=== PATIENT | female | born 1955 | race Caucasian/White ===

== ENCOUNTER 2022-10-30 15:26 | Emergency (ER) | payer BC, OTHER ==
[~2022-10-30] VITALS: Ht 162.6 cm; Wt 55.8 kg
[2022-10-30 15:28] VITALS: BP_SYST 154
--- NOTE | 2022-10-30 15:39 | NUR ---
PT STATES SEEN AT [facility] SEEN BY DR. MARIBELL LUCIO. STATES DEVELOPED SUDDEN ONSET OF CHEST HEAVINESS, RADIATING TO BACK, "SHAKEY", ANXIOUS, BLURRED VISION (OUTER EDGE OF VISUAL FIELD), SOB, EPIGASTRIC DISCOMFORT AFTER TAKING PAXIL IN AM, THEN LORAZEPAM 1MG AT NOON. STATES IS HELPING DAUGHTER MOVE TO NEW HOME. STATES SHE HAD "SMALL BOUTS OF THIS" PRIOR. STATES SIMILAR EVENTS HAVE HAPPENED PRIOR, SELF DESCRIBES "PANIC ATTACKS". STATES ONE WEEK AGO WHILE AT [employer] SHE BECAME UNABLE TOLERATE THE "NOISE". I STAYED IN THAT STATE UNTIL THE GAME WAS OVER. COMFORT MEASURES AND SUPPORTIVE CARE INITIATED. PREP FOR BED PLACEMENT, EKG AND ERMD MSE.
--- NOTE | 2022-10-30 15:45 | NUR ---
Pt brought by , A&Ox4, pt presents to ER with anxiety and chest tightness radiating to the back, skin pink and warm, cap refill <3, VSS, respirations even and unlabored, will cont to monitor.
--- NOTE | 2022-10-30 15:50 | NUR ---
Dr Borges evaluating patient at bedside
--- NOTE | 2022-10-30 16:35 | NUR ---
Pt ambulated to restroom, well tolerated
[2022-10-30 16:54] LABS: BASOPHILS % (AUTO) 0.8 % (0.0-2.0); EOSINOPHILS # (AUTO) 0.1 K/uL (0.0-0.4); EOSINOPHILS % (AUTO) 1.2 % (0.0-4.0); HEMATOCRIT 37.3 % (36-48); HEMOGLOBIN 12.9 g/dL (12.0-16.0); LYMPHOCYTES % (AUTO) 32.6 % (20.5-51.5); MEAN CORPUSCULAR HEMOGLOBIN 32 pg (27-31); MEAN CORPUSCULAR HGB CONC 35 % (32-36); MEAN CORPUSCULAR VOLUME 92 fL (79.0-98.0); MONOCYTES # (AUTO) 0.5 K/uL (0.0-1.0); MONOCYTES % (AUTO) 7.9 % (1.7-9.3); NEUTROPHILS # (AUTO) 3.5 K/uL (1.8-7.7); NEUTROPHILS % (AUTO) 57.5 % (40.0-70.0); PLATELET COUNT (AUTO) 211 K/uL (130-430); RED BLOOD CELL COUNT(AUTO) 4.06 MIL/uL (4.2-6.2); RED CELL DISTRIBUTION WIDTH 12.8 % (9.0-15.0); WHITE BLOOD COUNT (AUTO) 6.1 K/uL (4.8-10.8)
[2022-10-30 17:11] LABS: ALANINE AMINOTRANSFERASE 28 U/L (12-78); ALBUMIN 3.7 g/dL (3.4-4.8); ANION GAP 6 (5-15); ASPARTATE AMINOTRANSFERASE 23 U/L (10-37); CALCIUM 8.9 mg/dL (8.4-11.0); CHLORIDE 102 mmol/L (98-107); CREATININE 0.76 mg/dL (0.55-1.30); GFR AFRICAN AMERICAN 98 mL/min (>90); GLUCOSE 94 mg/dL (70-99); TOTAL BILIRUBIN 0.6 mg/dL (0.0-1.0); UREA NITROGEN, BLOOD 23 mg/dL (8-21)
[2022-10-30 17:40] VITALS: BP_SYST 154
--- NOTE | 2022-10-30 17:40 | NUR ---
Patient given written and verbal discharge instructions and verbalizes understanding. ER MD discussed with patient the results and treatment provided. Patient in stable condition. ID arm band removed. No Rx given. Patient educated on pain management and to follow up with PMD. Pain Scale 2/10 . Opportunity for questions provided and answered. Medication side effect fact sheet provided.
== END 2022-10-30 17:40 | disposition home or self-care (01) ==
LOC: SED 15:26
DX: F41.9 Anxiety disorder, unspecified (principal); R07.9 Chest pain, unspecified; R06.02 Shortness of breath; K21.9 Gastro-esophageal reflux disease without esophagitis; E78.5 Hyperlipidemia, unspecified; I10 Essential (primary) hypertension; Z79.899 Other long term (current) drug therapy
CPT/HCPCS: 36415; 71045; 80053; 84484; 85025; 93005; 99285